=== PATIENT | male | born 2005 | race Caucasian/White ===

== ENCOUNTER 2025-03-14 11:58 | Emergency (ER) | payer OTHER ==
[~2025-03-14] VITALS: Ht 185.4 cm; Wt 83.3 kg
[~2025-03-14 11:58] MED LIST: CARA1TAB6 PO; ONDA-284; PEPC1TAB5 PO; PROT1TAB2 PO; REGL10TA6 PO
[2025-03-14 12:00] VITALS: BP 132/85; TEMP 98.1; O2SAT 99
[2025-03-14] MEDS ORDERED: SUCR1TA PO (20:36)
[2025-03-14] MEDS ORDERED: ONDA-282 PO (20:36)
[2025-03-14] MEDS ORDERED: OMEP40CA4 PO (20:36)
== END 2025-03-14 13:52 | disposition left against medical advice (07) ==
LOC: M ED 11:58
DX: Z53.21 Procedure and treatment not carried out due to patient leaving prior to being seen by health care provider (principal)

== ENCOUNTER 2025-03-14 17:36 | Emergency (ER) | payer OTHER ==
[~2025-03-14] VITALS: Ht 185.4 cm; Wt 83.3 kg
[2025-03-14 20:35] VITALS: BP 130/79; TEMP 97.7; O2SAT 99
[2025-03-14] MEDS ORDERED: ONDA-282 PO (20:36)
[2025-03-14] MEDS ORDERED: SUCR1TA PO (20:36)
[2025-03-14] MEDS ORDERED: OMEP40CA4 PO (20:36)
[2025-03-14] MEDS: SUCRALFATE SUSP 1GM/10ML UD PO ONE (20:37)
[2025-03-14] MEDS: ONDANSETRON 4MG ORAL DISINTEGRATING TAB PO ONE (20:37)
[2025-03-14] MEDS: OMEPRAZOLE 20MG CAP PO ONE (20:37)
== END 2025-03-14 20:48 | disposition home or self-care (01) ==
LOC: M ED 17:36
DX: R11.10 Vomiting, unspecified (principal); K21.9 Gastro-esophageal reflux disease without esophagitis; Z79.899 Other long term (current) drug therapy